=== PATIENT | female | born 1960 | race Caucasian/White ===

== ENCOUNTER 2016-08-08 19:11 | Emergency (ER) | payer OTHER ==
[~2016-08-08] VITALS: Ht 152.4 cm; Wt 75.0 kg
[~2016-08-08 19:11] MED LIST: ATOR20TA65 PO; HYDR-762 PO; IBUP800T25 PO; LORA1TAB PO; PANT40TA3 PO; RANI300T3 PO; SIME80TA6 PO
[2016-08-08 19:26] VITALS: Ht 152.4 cm; Wt 75.0 kg
[2016-08-08] MEDS ORDERED: LORAZEPAM 1 MG TAB PO ONE (20:30)
[2016-08-08] MEDS ORDERED: LIDOCAINE/MYLANTA 40 ML BTL PO ONE (20:30)
[2016-08-08] MEDS ORDERED: PANTOPRAZOLE (EC) 40 MG TAB PO ONE (20:30)
--- NOTE | 2016-08-08 23:38 | ERD ---
ER Documentation Chief Complaint Date/Time DATE: 08/08/16 TIME: 23:33 Chief Complaint facial swelling, sore throat x 2 hrs, speaking in full sentences, HPI This is a 55-year-old female presenting to the emergency department for multiple complaints. Patient states she was eating fish earlier today and after about 1 hour she developed burning sensation to epigastric region that travels up to her throat. Patient has extensive history of GERD, gastritis and hiatal hernia. Patient states she takes as protonix daily and sees a GI specialist. Patient also has a history of anxiety and takes Ativan 1 mg daily. Patient is unsure if this burning sensation is related to her anxiety. No nausea or vomiting. Denies any abdominal pain. Patient stated that she had a sensation of facial swelling but knows that she does not have any facial swelling. No rash or facial itching. No shortness of breath or difficulty breathing. Denies chest pain or heart palpitations. Patient is speaking in full sentences. ROS All systems reviewed and are negative except as per history of present illness. Medications Home Meds Active Scripts Hydrocodone Bit-Acetaminophen* ([place]*) 10-325 Mg Tablet, 1 TAB PO Q6 Y for PAIN , #10 TAB Prov:PHILIPPE AHMADI MD 05/25/15 Ibuprofen* (Motrin*) 800 Mg Tab, 800 MG PO Q8 Y for PAIN AND OR ELEVATED TEMP, # 30 TAB Prov:PHILIPPE AHMADI MD 05/25/15 Pantoprazole* (Protonix*) 40 Mg Tablet.dr, 40 MG PO DAILY, #20 TAB Prov:PACO CAMARA DO 02/03/15 Reported Medications Simethicone* (Gas-X*) 80 Mg Tab.chew, 80 MG PO Q6H Y for DISTENSION/GAS/BLOATING , TAB.CHEW 05/25/15 Atorvastatin Calcium (Atorvastatin Calcium) 20 Mg Tablet, 20 MG PO QHS, #30 05/25/15 Lorazepam* (Lorazepam*) 1 Mg Tablet, 1 MG PO QID Y for ANXIETY, #90 05/25/15 Ranitidine Hcl* (Zantac*) 300 Mg Tablet, 300 MG PO HS, TAB 02/11/15 Allergies Allergies: Coded Allergies: No Known Allergy (Unverified , 02/11/16) PMhx/Soc History of Surgery: Yes ( X4, LEFT SHOULDER SX) Anesthesia Reaction: No Hx Neurological Disorder: No Hx Respiratory Disorders: No Hx Cardiac Disorders: No Hx Psychiatric Problems: Yes (ANXIETY) Hx Miscellaneous Medical Probl: Yes (gastritis, gerd) Hx Alcohol Use: No Hx Substance Use: No Hx Tobacco Use: Yes Smoking Status: Current every day smoker Physical Exam Vitals Vital Signs Date Time Temp Pulse Resp B/P Pulse Ox O2 Delivery O2 Flow Rate FiO2 08/08/16 19:26 97.3 69 17 121/63 97 Physical Exam Const: NAD, alert Head: Atraumatic Eyes: Normal Conjunctiva ENT: Normal External Ears, Nose and Mouth. No erythema or exudate posterior pharynx. Neck: Full range of motion..~ No meningismus. Resp: Clear to auscultation bilaterally. No wheezing, rhonchi or crackles. No stridor or labored breathing. Cardio: Regular rate and rhythm, no murmurs Abd: Soft, non tender, non distended. Normal bowel sounds Skin: No petechiae or rashes Back: No midline or flank tenderness Ext: No cyanosis, or edema Neur: Awake and alert Psych: Normal Mood and Affect Results 24 hrs Current Medications Medications (Trade) Dose Ordered Sig/Darleen Route PRN Reason Start Time Stop Time Status Last Admin Dose Admin Miscellaneous Medication (Gi Cocktail (2)) 40 ml ONCE ONCE PO 08/08/16 20:30 08/08/16 20:31 DC 08/08/16 20:32 Lorazepam (Ativan) 1 mg ONCE ONCE PO 08/08/16 20:30 08/08/16 20:31 DC 08/08/16 20:32 Pantoprazole (Protonix Tab) 40 mg ONCE ONCE PO 08/08/16 20:30 08/08/16 20:31 DC 08/08/16 20:32 Procedures/MDM ED COURSE: The patient was stable throughout ED course. I kept the patient and/or family informed of laboratory and diagnostic imaging results throughout the ED course. Protonix, GI cocktail and Ativan given p.o. MDM: 55-year-old female presents emergency department for burning sensation in epigastric region that radiated upward to throat 1 hour after eating. Patient has extensive history of GERD, gastritis and hiatal hernia. Patient takes Protonix daily. Patient also has history of anxiety and takes Ativan 1 mg once or twice daily. Patient given Protonix, GI cocktail and Ativan while in the ED. Upon reassessment, patient states symptoms have completely resolved and that she is feeling much better. Patient requesting to be discharged. No rashes. No facial swelling noted. Physical exam is overall unremarkable. Diagnosis is GERD and anxiety. Low suspicion for appendicitis, cholecystitis, diverticulitis, hepatitis or surgical abdomen. Patient is appropriate for outpatient management and instructed to follow-up with primary care provider in the next 2-3 days for reassessment and additional management. Return to ED for any high fever, chest pain, difficulty breathing, shortness breath, wheezing, vomiting, diarrhea, abdominal pain or any new or worsening symptoms. Patient verbalizes understanding. All questions answered at discharge. Departure Diagnosis: Primary Impression: Anxiety Additional Impression: GERD (gastroesophageal reflux disease) Esophagitis presence: esophagitis presence not specified Qualified Code: K21.9 - Gastroesophageal reflux disease, esophagitis presence not specified Condition: Stable Patient Instructions: Anxiety Reaction, Gerd (Adult) Additional Instructions: Call your primary care doctor TOMORROW for an appointment during the next 2-3 days.See the doctor sooner or return here if your condition worsens before your appointment time. Return to ED for any high fever, chest pain, difficulty breathing, shortness breath, wheezing, vomiting, diarrhea, abdominal pain or any new or worsening symptoms. WALDEMAR ROUSSEAU NP Aug 08, 2016 23:38
== END 2016-08-08 21:33 | disposition home or self-care (01) ==
LOC: FTE 19:11
DX: F41.9 Anxiety disorder, unspecified (principal); K21.9 Gastro-esophageal reflux disease without esophagitis; F17.210 Nicotine dependence, cigarettes, uncomplicated
CPT/HCPCS: Z7610 ×3; 99283

== ENCOUNTER 2017-01-21 13:58 | Emergency (ER) | payer SELFPAY ==
[~2017-01-21] VITALS: Wt 72.5 kg
== END 2017-01-21 20:00 | disposition left against medical advice (07) ==
LOC: E/R 13:58
DX: Z53.21 Procedure and treatment not carried out due to patient leaving prior to being seen by health care provider (principal)

== ENCOUNTER 2017-02-08 11:33 | Day surgery (SDC) | payer OTHER ==
[~2017-02-08] VITALS: Ht 152.4 cm; Wt 72.3 kg
[2017-02-08] MEDS ORDERED: OMEPRAZOLE PO (12:57)
[2017-02-08 13:01] VITALS: Ht 152.4 cm; Wt 72.3 kg
[2017-02-08] MEDS ORDERED: PROPOFOL 20 ML ONE (14:07)
[2017-02-08] MEDS ORDERED: LIDOCAINE 100 MG SYRINGE ONE (14:07)
[2017-02-08] MEDS ORDERED: FENTAnyl 50 MCG/ML VIAL ONE (14:07)
--- NOTE | 2017-02-08 14:27 | OPPN ---
Date/Time of Note Date/Time of Note DATE: 02/08/17 TIME: 14:26 Operative Report Preoperative Diagnosis Abdominal pain Chronic heartburn Postoperative Diagnosis Gastroesophageal reflux disease Gastritis Superficial gastric ulcers on the antrum Operation/Procedure Performed Esophagogastroduodenoscopy and biopsy Surgeon see signature line assistant program manager None Anesthesia: MAC Estimated blood loss: none Transfusion Required none Specimen Gastric mucosal biopsy Grafts/Implants none Complications none LATRELL ARROYO MD Feb 08, 2017 14:27
[2017-02-08 15:01] VITALS: BP 124/61; RESP 14
--- NOTE | 2017-02-09 07:02 | GILP ---
DATE OF PROCEDURE: NAME OF PROCEDURES: Esophagogastroduodenoscopy and biopsy. SURGEON: Rao Osorio MD PREOPERATIVE DIAGNOSIS: 1. Abdominal pain. 2. Nausea and vomiting. 3. Chronic heartburn. POSTOPERATIVE DIAGNOSES: 1. Gastroesophageal reflux disease. 2. Gastritis with erosions. 3. Superficial ulcers on the antrum and biopsies were taken for histopathology. INDICATION FOR THE PROCEDURE: Ms. Cary Kennedy is a 56-year-old female patient who had upper a bdominal pain not responding to therapy. She also had episodes of nausea and vomiting. She was com plaining of chronic heartburn. The patient was scheduled for endoscopic examination for further trey luation. The procedure and possible complications are well explained to the patient. The patient understood and consented to the procedure. DESCRIPTION OF PROCEDURE: Under the influence of anesthesia, the gastroscope was carefully introduc ed into the esophagus and, under direct vision, it was advanced to the stomach and through the pylor us into the duodenal bulb and descending duodenum. FINDINGS: ESOPHAGUS: The patient had gastroesophageal reflux disease. STOMACH: She had gastritis with erosions. She also had superficial ulcers on the gastric antrum an d biopsies were taken for histopathology. DUODENUM: Normal. She tolerated the procedure very well and there was no complication from the procedure. At the end of the procedure, she was awake with stable vital signs and she was discharged home to the care of h er family. IMPRESSION: Please see postoperative diagnosis. PLAN: 1. Continue omeprazole and Zantac. 2. Add Carafate 1 g p.o. t.i.d. before meals. 3. Await histopathology report. Dictated By: RAO CABRERA/DAVID Conf#: [id number] DID#: [id number]
== END 2017-02-08 17:50 | disposition home or self-care (01) ==
LOC: GIL 11:33
PROVIDERS: ATTEND Internal Medicine Gastroenterology
DX: R10.9 Unspecified abdominal pain (principal); K21.9 Gastro-esophageal reflux disease without esophagitis; K25.9 Gastric ulcer, unspecified as acute or chronic, without hemorrhage or perforation; K29.70 Gastritis, unspecified, without bleeding; F41.9 Anxiety disorder, unspecified
CPT/HCPCS: 43239; 88305; 88312; J2001; J3010; Z7610

== ENCOUNTER 2018-03-22 06:04 | Day surgery (SDC) | END 2018-03-22 10:32 | disposition home or self-care (01) ==